=== PATIENT | female | born 1995 | race Caucasian/White ===

== ENCOUNTER 2022-09-21 12:45 | Emergency (ER) | payer OTHER ==
[~2022-09-21] VITALS: Ht 152.4 cm; Wt 81.7 kg
[~2022-09-21 12:45] MED LIST: Zofran Odt8 MG SL
[2022-09-21 13:21] LABS: BASOPHILS ABSOLUTE AUTO 0.01 K/mm3 (0.00-0.23); BASOPHILS PERCENT AUTO 0 % (0-2); EOSINOPHILS ABSOLUTE AUTO 0.02 K/mm3 (0.00-0.68); EOSINOPHILS PERCENT AUTO 0 % (0-6); Hematocrit 30.2 % (33.0-51.0); Hemoglobin 10.3 g/dL (11.5-16.0); IMMATURE GRAN ABSOLUTE AUTO 0.02 K/mm3 (0.00-0.10); IMMATURE GRAN PERCENT AUTO 0 % (0-1); LYMPHOCYTES ABSOLUTE AUTO 1.63 K/mm3 (0.84-5.20); LYMPHOCYTES PERCENT AUTO 20 % (21-46); MONOCYTES PERCENT AUTO 7 % (4-13); Mean Corpuscular HGB 31.3 pg (26.0-34.0); Mean Corpuscular HGB Conc 34.1 g/dL (31.5-36.5); Mean Corpuscular Volume 92 fL (80-100); Mean Platelet Volume 9.5 fL (9.1-12.4); NEUTROPHILS ABSOLUTE AUTO 5.92 K/mm3 (1.96-9.15); NEUTROPHILS PERCENT AUTO 72 % (41-73); Platelet Count 231 K/mm3 (150-400); RDW Coefficient Variation 12.2 % (11.7-14.2); Red Blood Cell Count 3.29 M/mm3 (3.80-5.20)
[2022-09-21 13:37] LABS: Albumin, Blood 3.1 g/dL (3.4-5.0); Albumin/Globulin Ratio 0.8 (0.8-1.8); Bilirubin, Total 0.2 mg/dL (0.1-1.0); Bun/Creatinine Ratio 9.9 (12.0-20.0); Calcium, Blood 8.8 mg/dL (8.5-10.1); Creatinine, Blood 0.5 mg/dL (0.40-1.00); Globulin, Blood 3.9 g/dL (2.2-4.0); Potassium, Blood 3.7 mmol/L (3.5-5.5)
[2022-09-21 16:03] LABS: Source, Urine Clean Catch
[2022-09-21 16:11] LABS: Appearance, Urine Clear (Clear); Bilirubin, Urine Neg (Neg); Blood, Urine Neg (Neg); Color, Urine Yellow (P-Yellow); Glucose Qualitative, Urine Neg (Neg); Ketones, Urine 2+ (Neg); Leukocyte Esterase, Urine Neg (Neg); Nitrite, Urine Neg (Neg); Protein, Urine Neg (Neg); Specific Gravity, Urine 1.015 (1.003-1.022); Urobilinogen, Urine NORM (Normal)
[2022-09-21] MEDS ORDERED: DICLEGIS DR 101 EAC1 PO (19:18)
[2022-09-21 19:30] VITALS: BP 107/64
== END 2022-09-21 19:33 | disposition home or self-care (01) ==
LOC: ER 12:45
PROVIDERS: Student in an Organized Health Care Education/Training Program
DX: O21.9 Vomiting of pregnancy, unspecified (principal); Z88.8 Allergy status to other drugs, medicaments and biological substances; Z87.891 Personal history of nicotine dependence; Z3A.27 27 weeks gestation of pregnancy
CPT/HCPCS: 80053; 81003; 85025; A9270; J1200; J2765; J7120

== ENCOUNTER → 2022-11-13 | Outpatient (CLI) | payer OTHER ==
[~2022-11-13] MED LIST changes: +DICLEGIS DR 101 EAC1 PO
== END | disposition home or self-care (01) ==
LOC: LAB 16:15 → LAB SHORT 16:15
DX: O09.893 Supervision of other high risk pregnancies, third trimester (principal)
CPT/HCPCS: 87081; 87150

== ENCOUNTER 2022-12-10 08:04 | Inpatient (IN) | payer OTHER ==
[~2022-12-10] VITALS: Ht 152.4 cm; Wt 91.1 kg
[2022-12-10] VITALS (23 sets, daily range): BP systolic 106–157; BP diastolic 46–106
[2022-12-10 08:24] LABS: BASOPHILS ABSOLUTE AUTO 0.02 K/mm3 (0.00-0.23); BASOPHILS PERCENT AUTO 0 % (0-2); EOSINOPHILS ABSOLUTE AUTO 0.04 K/mm3 (0.00-0.68); EOSINOPHILS PERCENT AUTO 1 % (0-6); Hematocrit 31.1 % (33.0-51.0); Hemoglobin 10.5 g/dL (11.5-16.0); IMMATURE GRAN ABSOLUTE AUTO 0.02 K/mm3 (0.00-0.10); IMMATURE GRAN PERCENT AUTO 0 % (0-1); LYMPHOCYTES ABSOLUTE AUTO 1.93 K/mm3 (0.84-5.20); LYMPHOCYTES PERCENT AUTO 28 % (21-46); MONOCYTES PERCENT AUTO 7 % (4-13); Mean Corpuscular HGB Conc 33.8 g/dL (31.5-36.5); Mean Corpuscular Volume 86 fL (80-100); Mean Platelet Volume 10.5 fL (9.1-12.4); NEUTROPHILS ABSOLUTE AUTO 4.49 K/mm3 (1.96-9.15); NEUTROPHILS PERCENT AUTO 64 % (41-73); Platelet Count 256 K/mm3 (150-400); RDW Coefficient Variation 13.3 % (11.7-14.2); RDW Standard Deviation 41.1 fL (35.1-46.3); Red Blood Cell Count 3.62 M/mm3 (3.80-5.20)
[2022-12-10] MEDS ORDERED: PRENATAL TABLE1 EAC2 PO (08:28)
[2022-12-10] MEDS ORDERED: SERT100 PO (08:28)
--- NOTE | 2022-12-10 11:55 | NUR ---
UPDATED DR FALCON WITH QBL - ORDERS IF NEEDED - FUNDUS FIRM BLEEDING STABLE AT THIS TIME
--- NOTE | 2022-12-10 12:14 | NUR ---
ASSUMED CARE AT 1200. PT COMFORTABLE IN ROOM TALKING ON PHONE. CRACKERS AND WATER GIVEN. TOLERATING WELL
[2022-12-10] MEDS ORDERED: ACET500 PO (15:39)
[2022-12-10] MEDS ORDERED: IBUP800 PO (15:39)
[2022-12-11 00:46] VITALS: BP 123/73
[2022-12-11 04:16] VITALS: BP 124/83
[2022-12-11 05:47] LABS: BASOPHILS ABSOLUTE AUTO 0.02 K/mm3 (0.00-0.23); BASOPHILS PERCENT AUTO 0 % (0-2); EOSINOPHILS ABSOLUTE AUTO 0.03 K/mm3 (0.00-0.68); EOSINOPHILS PERCENT AUTO 0 % (0-6); Hematocrit 23.5 % (33.0-51.0); Hemoglobin 7.7 g/dL (11.5-16.0); IMMATURE GRAN ABSOLUTE AUTO 0.03 K/mm3 (0.00-0.10); IMMATURE GRAN PERCENT AUTO 0 % (0-1); LYMPHOCYTES PERCENT AUTO 20 % (21-46); MONOCYTES ABSOLUTE AUTO 0.55 K/mm3 (0.16-1.47); MONOCYTES PERCENT AUTO 7 % (4-13); Mean Corpuscular HGB 28.6 pg (26.0-34.0); Mean Corpuscular HGB Conc 32.8 g/dL (31.5-36.5); Mean Corpuscular Volume 87 fL (80-100); Mean Platelet Volume 10.6 fL (9.1-12.4); NEUTROPHILS ABSOLUTE AUTO 6.11 K/mm3 (1.96-9.15); NEUTROPHILS PERCENT AUTO 72 % (41-73); Platelet Count 204 K/mm3 (150-400); RDW Coefficient Variation 13.6 % (11.7-14.2); Red Blood Cell Count 2.69 M/mm3 (3.80-5.20); White Blood Cell Count 8.44 K/mm3 (4.00-11.30)
[2022-12-11 07:43] VITALS: BP 133/71
--- NOTE | 2022-12-11 11:49 | NUR ---
This RN charting at Nurses locomotive observer and over heard verbal convertation, I couldn't understand all of the conversation but could hear FOB talkng louder and becoming louder over time. I entered the room informed parents that this behavior was not exceptable in front of the baby and took baby to secure nursery. fob was escorted off unit and ask to to not return per pt. Security was called and report was filed. Will discuss CORE Referral with PT she is declining at this time.
[2022-12-11 19:12] VITALS: BP 134/85
[2022-12-11 19:13] VITALS: BP 134/85
[2022-12-12 00:15] VITALS: BP 130/65
[2022-12-12 05:24] VITALS: BP 128/82
[2022-12-12 09:31] VITALS: BP 129/76
[2022-12-12 11:51] VITALS: BP 127/69
--- NOTE | 2022-12-12 12:12 | NUR ---
PT COMPLETED PP DEPRESSION SCORE AND THE SCORE WAS 21, PROVIDER UPDATED, DR. FALCON HAS PATIENT SCHDULED WITH PSYCHOLOGISTTEMO CUNNINGHAM LATER THIS MONTH, SOCIAL SERVICE CONSULT PLACED AND WORKER WILL SEE PT TODAY PIOR TO GOING TO BOARDER STATUS.
[2022-12-12 17:04] VITALS: BP 127/81
== END 2022-12-12 17:25 | disposition home or self-care (01) | DRG 787 ==
LOC: BC 08:04
PROVIDERS: ADMIT Obstetrics & Gynecology
PROC: 10D00Z1 Extraction of Products of Conception, Low, Open Approach (ICD-10-PCS; principal; 2022-12-10 09:30)
DX: O34.211 Maternal care for low transverse scar from previous cesarean delivery (principal); D62 Acute posthemorrhagic anemia; O99.324 Drug use complicating childbirth; Z3A.39 39 weeks gestation of pregnancy; O66.2 Obstructed labor due to unusually large fetus; Z37.0 Single live birth; Z98.890 Other specified postprocedural states; Z88.8 Allergy status to other drugs, medicaments and biological substances; O99.02 Anemia complicating childbirth; F12.90 Cannabis use, unspecified, uncomplicated
CPT/HCPCS: 36415; 85025; 86850; 86900; 86901; A9270; J0690; J1885; J2210; J2405; J2590; J2765; J2916; J3010; J7120